=== PATIENT | male | born 1990 | race Caucasian/White ===

== ENCOUNTER 2020-01-17 20:00 | Outpatient (CLI) | payer BC, SELFPAY | END 2020-01-17 20:01 | disposition home or self-care (01) | LOC: SLEEP 01-18 09:22 | PROVIDERS: Family Provider Family Medicine; PCP Family Medicine; Visit Provider Nurse Practitioner | DX: G47.10 Hypersomnia, unspecified (principal); G47.33 Obstructive sleep apnea (adult) (pediatric) | CPT/HCPCS: 95810 ==